=== PATIENT | female | born 1940 | race Caucasian/White ===

== ENCOUNTER 2016-10-12 10:21 | Outpatient (CLI) | payer MEDICARE, OTHER ==
[2016-10-12] MEDS ORDERED: Bupivacaine 0.25% 30 ML SDV ONE (11:50)
[2016-10-12] MEDS ORDERED: Lidocaine 1% 2 ML ONE (11:50)
[2016-10-12 12:31] VITALS: BP 162/87
--- NOTE | 2016-10-12 14:17 | PROC ---
This is an evaluation and procedure note. TITLE: Trigger point injection x5. SUBJECTIVE: This patient returns today. She had a left SI joint injection about a month ago. She stated that it did give her some relief, but she had been having a little bit more discomfort. She did not get quite relief this time as she did previously. She says that she is having a lot of discomfort in the upper buttock and more towards the left hip. She does say that it seems to be near the SI joint, however, when she points she is significantly lateral and somewhat inferior sometimes, somewhat superior to where the left SI joint is. She does not wake up with the pain in the morning. There is no real trouble down the leg, once in a while, she gets a little bit down the back of her calf when it gets particularly bad, however, it stops at the knee and it really is not very intense there. She says she denies anything going over onto the right side. She says once in a while it feels like she moves in a particular way and it feels like there is a stretching pain there. She said it is almost a cutting type pain, in other words, when you cut your finger that initial sensation, but it tends to be worse in the evening and does not really occur in the morning until she gets up and begins moving. She reports her pain today as being 2 to 3 out of 10, worst is about 6/10, and the best is about 2/10. It gets up to about 6/10 every single day. In certain position it will make it worse, however, she is not really sure which ones make it worse exactly, but doing certain bending maneuvers or so forth tend to make it more uncomfortable. It is worse with car rides. She says that it is better with heat as well as the medications. She also did say that she has gone to massage therapy and that seems to have helped in the past. She also said that using a back roll seems to help particularly if she places it near her hips. She does lean on the cart when she walks and that seems to take some of the pressure off those muscles as well. The patient denies any pain in the anterior aspect or into the groin. OBJECTIVE: This is a pleasant 76-year-old white female, who is alert and oriented x3. I did have her do gait testing, which she had normal heel-toe walk and upright posture with a cane. She was able to walk on her heels, toes, and with feet inverted and not experiencing any provocation. Axial bending, she does have a little bit more discomfort if she bends forward, it is a slight increase, extension is slight increase as well. Left lateral bending is slight increase. Right lateral bending and left and right lateral rotation were negative. Range of motion is unimpeded. Strength testing bilaterally, hip abduction, adduction, flexion 5/5 bilaterally. Her lower leg extension and flexion are 5/5 bilaterally. Dorsi and plantar flexion are 5/5 bilaterally. Clonus is negative. Pulses are 2+ bilaterally. Skin is pink with less than 3 seconds capillary refill. Patellar reflexes are +1 bilaterally. Achilles reflexes are +1 bilaterally. She does have some greater trochanter tenderness on the left hand side. Straight leg raise was negative both in the supine and sitting position. Mike's was negative. SI joint tenderness is slight and best on the left hand side and facetogenic tenderness is very positive bilaterally. She does have trigger points that I can feel particularly in the gluteus and there maybe a couple of others, which I was unable to palpate on a quick exam. ASSESSMENT: Myofascial pain, possible left sacroiliac joint pain, however, I believe that is unlikely, also possible spinal stenosis related pain. She does have some pain associated with the L5 dermatome, but it is not producible on provocation. Trigger points in the gluteus uzair, gluteus minimus, gluteus medius as well as the psoas muscle. Plan to do trigger points today. We will do trigger points into the above- stated muscles. Also, I did talk to her about medications. We discussed the possible use of a muscle relaxant. She does seem to have some myofascial pain, which may help reduce this. I did also talk about restarting her gabapentin. She does have that on her med list, however, she has stopped it due to somnolence. We talked about starting that up at 100 mg doing that for 4 to 7 days in the evening only before adding in the morning dose for another 4 to 7 days and finally the daytime dose for 4 to 7 days. I did tell her that if she is getting quite somnolent during the day, to double up on the evening dose as possible with dosing mechanism, but I did tell her to talk to Dr. Townsend about that. Also talk to her about the use of ibuprofen or Tylenol, which are on her med list and probably using them on a more frequent and regular basis will help with any discomfort that she has. She does do some physical therapy exercises. I did tell her that she should probably go to Physical therapy and get some isometric exercises specific for SI joint strengthening. We did discuss diet as well which seems to be okay and she denies any bowel or bladder problems or intent to harm due to the opioids. PROCEDURE NOTE: The patient was placed on the prone positioner. Knees and hips were flexed. Ankles were placed on a pillow. The abdomen was allowed to hang freely. Shoulders were well supported, less than 90 degrees. Head was in the head cradle with eyes and ears clear. I looked for trigger points and located them in the gluteus uzair, gluteus minimus, gluteus medius, and the psoas muscle. There were 2 in the gluteus uzair, 1 each in the others. I placed gary corresponding to that on the skin. Whole area was prepped with ChloraPrep. I then placed a 25-gauge x 3.5 inch needles into the trigger points, placing each needle in turn into the trigger point. I then went back to each needle, aspirated and injected approximately 1 mL of 0.25% Marcaine. At that point, I let the needles sit for a minute or so with the needle in the belly of the muscle in the trigger point. I then began needling each trigger point in the sequence. I needled the trigger points for approximately 30 seconds then I injected 0.5 mL into superior, inferior, medial, and lateral aspects of the trigger point and then continued needling for approximately 20 to 30 seconds after that in the fascia around. I did note quite a bit of tight fascia and so needling was performed in a wide area. That was done for all trigger points. When I finished, the patient returned to a standing position. She told me that she had about 1/10 pain, which was an improvement and she was able to move around with less discomfort. No untoward effects were noted. Vital signs were monitored. She was discharged stable. PLAN: Plan to have her give us a call and see how she is doing, if she should need to come back for any injections, we can schedule her at that time. Thank you very much for this consult. CK: 10/12/2016 12:40:38 MODL: 10/12/2016 14:08:32 /[id number]
== END 2016-10-12 12:34 | disposition home or self-care (01) ==
LOC: VM.PAIN 10:21
PROVIDERS: ATTEND Nurse Anesthetist, Certified Registered
DX: M79.609 Pain in unspecified limb (principal)
CPT/HCPCS: 20553

== ENCOUNTER 2017-06-21 06:54 | Day surgery (SDC) | payer MEDICARE, OTHER ==
[~2017-06-21 06:54] MED LIST: Lactated Ringers 1,000 ML IV SCH
[2017-06-21] MEDS ORDERED: Propofol 200 MG/20 ML SDV ONE (07:48)
[2017-06-21 09:20] VITALS: BP 127/70
--- NOTE | 2017-06-27 10:04 | LETTER ---
06/27/2017 Gabbie Villarreal RE: GABBIE VILLARREAL : 1940 Dear Gabbie: The biopsies taken from your stomach revealed some mild gastritis and there was no evidence of H. pylori which is the bacteria that can cause gastritis. If you have any further questions, feel free to call or consult with your family physician. Respectfully,
--- NOTE | 2017-06-27 14:00 | OR ---
PREOPERATIVE DIAGNOSIS: Dyspepsia, epigastric pain. POSTOPERATIVE DIAGNOSIS: Large hiatal hernia and gastritis. PROCEDURE PROPOSED: Upper gastrointestinal panendoscopy with antral biopsies. PROCEDURE DONE: Upper gastrointestinal panendoscopy with antral biopsies. INDICATION: This is a 76-year-old female bothered with some epigastric bloating and discomfort despite being on antacid medication. It is felt that she should be gastroscoped to rule out significant pathology. TECHNIQUE: The patient was brought to the endoscopy suite, placed in left lateral decubitus position. She was sedated with propofol per IRONWORKER FOREMAN. The flexible video gastroscope was then passed transorally and under visualization advanced well into the duodenum. The duodenum and duodenal bulb were unremarkable. The antrum revealed very mild gastritis. The proximal portion of the stomach revealed a moderate-sized hiatal hernia with approximately 25-30% of her stomach above the diaphragms with the herniated portion measuring about 6 cm. The GE junction itself did not show any active GERD. There were no signs of any Schatzki's ring or stenosis and the remainder of esophagus was normal. As the scope was then withdrawn, she tolerated the procedure well. FINAL IMPRESSION: 1. Moderate size hiatal hernia, probably symptomatic. 2. Minimal gastritis, on treatment. PLAN: I feel that she should continue taking her anti-acid medication. She could be a candidate for lap Joshua if she continues to be severely symptomatic but based on her age, there would be some risk in doing the procedure. She should follow up with her family physician for any further questions. SCM: 06/27/2017 09:45:32 MODL: 06/27/2017 13:05:16 /[id number]
== END 2017-06-21 09:55 | disposition home or self-care (01) ==
LOC: VM.SDS 06:54
PROVIDERS: ATTEND Surgery
DX: K31.9 Disease of stomach and duodenum, unspecified (principal); K44.9 Diaphragmatic hernia without obstruction or gangrene; K21.9 Gastro-esophageal reflux disease without esophagitis; G89.29 Other chronic pain; M54.42 Lumbago with sciatica, left side; I10 Essential (primary) hypertension; E66.9 Obesity, unspecified; E78.5 Hyperlipidemia, unspecified; D50.9 Iron deficiency anemia, unspecified; F32.9 Major depressive disorder, single episode, unspecified; E11.40 Type 2 diabetes mellitus with diabetic neuropathy, unspecified; E11.319 Type 2 diabetes mellitus with unspecified diabetic retinopathy without macular edema; Z79.4 Long term (current) use of insulin; Z79.82 Long term (current) use of aspirin; Z79.891 Long term (current) use of opiate analgesic; Z79.899 Other long term (current) drug therapy; Z88.8 Allergy status to other drugs, medicaments and biological substances; Z90.710 Acquired absence of both cervix and uterus; Z68.33 Body mass index [BMI] 33.0-33.9, adult; Z98.890 Other specified postprocedural states
CPT/HCPCS: 00740; 43239; 82962; 88305; J2704; J7120

== ENCOUNTER 2017-09-27 07:00 | Day surgery (SDC) | payer MEDICARE, OTHER ==
[2017-09-27] MEDS ORDERED: fentaNYL 100 MCG/2 ML SDV ONE (08:17)
[2017-09-27] MEDS ORDERED: Propofol 200 MG/20 ML SDV ONE ×2 (08:17→08:45)
[2017-09-27 09:56] VITALS: BP 146/59
--- NOTE | 2017-09-27 16:33 | OR ---
PREOPERATIVE DIAGNOSIS: Anemia. POSTOPERATIVE DIAGNOSES: 1. Hepatic flexure colon carcinoma. 2. Multiple colonic polyps-5 removed. PROCEDURE PROPOSED: Total flexible colonoscopy. PROCEDURE DONE: Total flexible colonoscopy with polypectomy x5 and biopsies of colon mass. INDICATION: This is a 77-year-old female with significant anemia of 8.7 with iron deficiency. She had an EGD recently and was found to have some gastritis and was now referred for colonoscopy. It is uncertain when she had her last one, but the patient states it was in 2012 and records will be reviewed. TECHNIQUE: The patient was brought to the endoscopy suite and placed in left lateral decubitus position. She was sedated per AUTOMOBILE ASSEMBLY SUPERVISOR with propofol. The flexible video colonoscope was then passed transanally and under visualization advanced to the cecum. She had a couple of polyps in the ascending colon, but after finding a large carcinomatous mass at the hepatic flexure, I did not attempt to remove the polyps in the ascending colon. The ascending colon mass was biopsied multiple times. I then brought the scope back into the transverse colon and at 75 cm, 2 polyps were found, both were removed with cold biopsy forceps and submitted for pathologic examination. I then brought the scope back through the splenic flexure and into the descending colon, all of which were unremarkable. In the sigmoid colon, I found 2 more polyps at about 15 cm, large enough that I had to use the hot snare technique and retrieved them with suction. Another polyp had been found at [address] and that one had been removed with the cold biopsy forceps. The rectum was normal. The scope was then withdrawn. The patient tolerated the procedure well. FINAL IMPRESSION: 1. Hepatic flexure colon carcinoma. 2. Multiple colonic polyps x5, removed. PLAN: I have recommended a CAT scan of the abdomen to rule out metastatic disease. We will also obtain a CEA and chemistry panel preoperatively. She will need General Surgery referral either to [facility] or [place] depending on the patient's wishes. SCM: 09/27/2017 09:16:28 MODL: 09/27/2017 13:51:17 /[id number]
== END 2017-09-27 10:30 | disposition home or self-care (01) ==
LOC: VM.SDS 07:00
PROVIDERS: ATTEND Surgery
DX: D12.6 Benign neoplasm of colon, unspecified (principal); K63.5 Polyp of colon; E11.22 Type 2 diabetes mellitus with diabetic chronic kidney disease; I12.9 Hypertensive chronic kidney disease with stage 1 through stage 4 chronic kidney disease, or unspecified chronic kidney disease; D63.1 Anemia in chronic kidney disease; N18.2 Chronic kidney disease, stage 2 (mild); D50.0 Iron deficiency anemia secondary to blood loss (chronic); K21.9 Gastro-esophageal reflux disease without esophagitis; E11.40 Type 2 diabetes mellitus with diabetic neuropathy, unspecified; E11.319 Type 2 diabetes mellitus with unspecified diabetic retinopathy without macular edema; E78.5 Hyperlipidemia, unspecified; F33.40 Major depressive disorder, recurrent, in remission, unspecified; E66.9 Obesity, unspecified; Z88.8 Allergy status to other drugs, medicaments and biological substances; Z79.84 Long term (current) use of oral hypoglycemic drugs; Z79.82 Long term (current) use of aspirin; Z68.32 Body mass index [BMI] 32.0-32.9, adult; K63.9 Disease of intestine, unspecified; K44.9 Diaphragmatic hernia without obstruction or gangrene; R91.8 Other nonspecific abnormal finding of lung field
CPT/HCPCS: 00810; 45380; 45385; 82962; 88305; J2704; J3010; J7120; 74177; Q9967

== ENCOUNTER 2019-02-05 06:32 | Day surgery (SDC) | payer MEDICARE, OTHER ==
[~2019-02-05 06:32] MED LIST changes: +Sodium Chloride 0.9% 10 ML Syringe FLUSH PRN
[2019-02-05] MEDS ORDERED: fentaNYL 100 MCG/2 ML SDV ONE (07:47)
[2019-02-05] MEDS ORDERED: Propofol 200 MG/20 ML SDV ONE (07:47)
[2019-02-05] MEDS ORDERED: Simethicone Drops 40 MG/0.6 ML 30 ML Bottle ONE (08:17)
[2019-02-05 09:08] VITALS: BP 119/62
--- NOTE | 2019-02-05 11:41 | OR ---
PREOPERATIVE DIAGNOSES: 1. History of colon cancer, previous right hemicolectomy. 2. History of cancerous polypectomy 7 months ago. PROCEDURE PROPOSED: Total flexible colonoscopy. PROCEDURE DONE: Total flexible colonoscopy. POSTOPERATIVE DIAGNOSIS: Normal colonoscopic exam. Previous right hemicolectomy. 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 She was found on a followup exam 7 months ago to have a polyp near the anastomosis that was removed and revealed a small focus of adenocarcinoma. She now comes in for a 7 month followup from that polypectomy. TECHNIQUE: The patient brought to the endoscopy suite, placed in left lateral decubitus position. She was sedated per PORTFOLIO ARCHITECT with propofol. The flexible video colonoscope was then passed transanally, and under visualization, advanced to the transverse colon and ileal anastomosis which was widely patent. There were no signs of any abnormalities in the vicinity. No signs of any recurrent polyp. No signs of any other polyps throughout the transverse, descending, sigmoid, and rectal colon. There were no signs of any diverticulosis or other abnormalities and the scope was then withdrawn. The patient tolerated the procedure well. FINAL IMPRESSION: 1. Normal colonoscopic exam, status post right hemicolectomy. 2. History of previous colon cancer and cancerous polyp. PLAN: The patient should consider another followup exam in the next 6 to 12 months to keep a close eye in this area. SCM: 02/05/2019 08:23:47 MODL: 02/05/2019 11:36:50 /[id number]
== END 2019-02-05 09:35 | disposition home or self-care (01) ==
LOC: VM.SDS 06:32
PROVIDERS: ATTEND Surgery
DX: Z12.11 Encounter for screening for malignant neoplasm of colon (principal); Z85.038 Personal history of other malignant neoplasm of large intestine; K29.50 Unspecified chronic gastritis without bleeding; I13.10 Hypertensive heart and chronic kidney disease without heart failure, with stage 1 through stage 4 chronic kidney disease, or unspecified chronic kidney disease; E11.22 Type 2 diabetes mellitus with diabetic chronic kidney disease; N18.3 Chronic kidney disease, stage 3 (moderate); E66.9 Obesity, unspecified; Z68.31 Body mass index [BMI] 31.0-31.9, adult; Z79.4 Long term (current) use of insulin; F32.9 Major depressive disorder, single episode, unspecified; F41.9 Anxiety disorder, unspecified; Z79.891 Long term (current) use of opiate analgesic; Z79.82 Long term (current) use of aspirin; Z79.899 Other long term (current) drug therapy; Z88.8 Allergy status to other drugs, medicaments and biological substances
CPT/HCPCS: 00811; 82962; G0121; J2704; J3010; J7120

== ENCOUNTER 2020-03-12 06:57 | Day surgery (SDC) | payer MEDICARE, OTHER ==
[~2020-03-12 06:57] MED LIST changes: -Lactated Ringers 1,000 ML IV SCH
[2020-03-12] MEDS ORDERED: Lactated Ringers 1,000 ML IV SCH (07:00)
[2020-03-12] MEDS ORDERED: fentaNYL 100 MCG/2 ML SDV ONE (07:52)
[2020-03-12] MEDS ORDERED: Propofol 200 MG/20 ML SDV ONE ×2 (07:53→08:33)
[2020-03-12 09:12] VITALS: BP 96/63; PULSE 76
--- NOTE | 2020-03-13 11:44 | OR ---
DATE OF SURGERY: 03/12/2020. REFERRING PROVIDER: 1. Cary Tee DO. 2. Dr. Panchal, oncologist in [place]. PRE-OPERATIVE DIAGNOSES: History of colon cancer with right hemicolectomy in 10/2017. Last colonoscopy in 01/2019 was normal. POST-OPERATIVE DIAGNOSES: 1. 3 polyps removed. a. 6 mm polyp at 100 cm, removed with hot snare. b. 10 mm polyp at 80 cm, removed with hot snare. c. 3 mm rectal polyp, removed with cold forceps. 2. Tortuous colon. 3. At the right anastomosis site, there was noted to be two 4 mm fecal concretions, which I suspect to have formed non-partially exposed sutures. These are firm and immobile and dark black in color. I do not see any worrisome tissue around the areas. PROCEDURE: Colonoscopy with polypectomy x3 (2 hot snares and 1 cold forceps). SURGEON: John Stevenson M.D. ANESTHESIA: Monitored anesthesia care. BOWEL PREP: Good. Gabbie is a 79-year-old female who was brought to the endoscopy suite after discussing risks and benefits of the procedure. Informed consent was obtained for conscious sedation and colonoscopy with or without biopsy and/or polypectomy. We also discussed possibility of missed lesions. Pre-procedure exam was unremarkable. IV, oxygen, and monitors were placed. The patient was placed in the left lateral decubitus position. Sedation was administered and a digital rectal exam was performed which was unremarkable. Colonoscope was passed into the rectum and slowly advanced all the way to the right-sided anastomosis site. The patient did have rather tortuous colon. The right anastomosis site was viewed. There was noted to be two 4 mm rounded dark firm and immobile fecal concretions. I suspect these are located on 2 partially exposed sutures on previous right hemicolectomy. There was no worrisome looking tissue around the area or nearby the anastomosis site. The colonoscope was slowly withdrawn and the mucosa was closely observed in a direct circumferential manner. The ascending colon revealed 6 mm polyp at 100 cm, removed with hot snare. The transverse colon revealed 10 mm polyp at 80 cm, removed with hot snare. The descending colon was unremarkable. The sigmoid colon was unremarkable. Rectal mucosa revealed 3 mm polyp, removed with cold forceps. Retroflexion was performed and rectal mucosa was otherwise unremarkable. Scope was removed. The patient tolerated the procedure well. The patient was monitored until that baseline status. Discharge instructions were reviewed and the patient was discharged in good condition. COMPLICATIONS: None. TOTAL TIME: 44 minutes ESTIMATED BLOOD LOSS: Less than 1 mL. RECOMMENDATIONS/FOLLOW-UP: We will await results of path report to determine ideal followup interval. I will have the patient hold her aspirin for about 5 days to limit any chance of bleeding from the polypectomy sites. I would like to kindly thank Cary Tee and Dr. Panchal for this referral. DMB: 03/12/2020 13:02:16 MODL: 03/12/2020 15:56:32 /[id number]
== END 2020-03-12 10:15 | disposition home or self-care (01) ==
LOC: VM.SDS 06:57
PROVIDERS: ATTEND Family Medicine
DX: Z12.11 Encounter for screening for malignant neoplasm of colon (principal); D12.2 Benign neoplasm of ascending colon; D12.3 Benign neoplasm of transverse colon; K62.1 Rectal polyp; Q43.8 Other specified congenital malformations of intestine; I10 Essential (primary) hypertension; E66.9 Obesity, unspecified; F32.9 Major depressive disorder, single episode, unspecified; E11.319 Type 2 diabetes mellitus with unspecified diabetic retinopathy without macular edema; E78.5 Hyperlipidemia, unspecified; K21.9 Gastro-esophageal reflux disease without esophagitis; R91.8 Other nonspecific abnormal finding of lung field; E11.40 Type 2 diabetes mellitus with diabetic neuropathy, unspecified; E78.00 Pure hypercholesterolemia, unspecified; Z11.59 Encounter for screening for other viral diseases; Z87.891 Personal history of nicotine dependence; Z79.899 Other long term (current) drug therapy; Z79.4 Long term (current) use of insulin; Z68.29 Body mass index [BMI] 29.0-29.9, adult; Z85.038 Personal history of other malignant neoplasm of large intestine; Z90.49 Acquired absence of other specified parts of digestive tract; Z98.890 Other specified postprocedural states
CPT/HCPCS: 00811; 45380; 45385; 82962; 88305; J2704; J3010; J7120; U0002; 45384

== ENCOUNTER 2022-05-20 06:44 | Day surgery (SDC) | payer MEDICARE, OTHER ==
[2022-05-20] MEDS ORDERED: Sodium Chloride 0.9% 10 ML Syringe FLUSH PRN (07:00)
[2022-05-20] MEDS: Lactated Ringers 1,000 ML IV SCH (07:02)
[2022-05-20] MEDS ORDERED: fentaNYL 100 MCG/2 ML SDV ONE (07:47)
[2022-05-20] MEDS ORDERED: Propofol 200 MG/20 ML SDV ONE ×2 (07:47→08:12)
[2022-05-20 09:20] VITALS: BP 138/57; PULSE 72
== END 2022-05-20 09:54 | disposition home or self-care (01) ==
LOC: VM.SDS 06:44
PROVIDERS: ATTEND Student in an Organized Health Care Education/Training Program
DX: Z12.11 Encounter for screening for malignant neoplasm of colon (principal); D12.3 Benign neoplasm of transverse colon; I10 Essential (primary) hypertension; E66.9 Obesity, unspecified; E11.40 Type 2 diabetes mellitus with diabetic neuropathy, unspecified; F32.A Depression, unspecified; K21.9 Gastro-esophageal reflux disease without esophagitis; M85.80 Other specified disorders of bone density and structure, unspecified site; E78.5 Hyperlipidemia, unspecified; D64.9 Anemia, unspecified; Z87.891 Personal history of nicotine dependence; Z85.038 Personal history of other malignant neoplasm of large intestine; Z90.49 Acquired absence of other specified parts of digestive tract; Z98.890 Other specified postprocedural states; Z79.4 Long term (current) use of insulin; Z68.30 Body mass index [BMI] 30.0-30.9, adult
CPT/HCPCS: 00811; 82947; J2704; J3010; J7120

== ENCOUNTER 2025-03-06 10:35 | Inpatient (IN) | payer SELFPAY ==
[2025-03-06] MEDS: [UNRECOGNIZED DRUG - OTHER] PO ONE (15:50)
[2025-03-06] MEDS ORDERED: Sodium Chloride 0.9% 10 ML Syringe FLUSH PRN (15:56)
[2025-03-06] MEDS: Bisacodyl 5 MG Tab PO ONE (18:48)
[2025-03-06] MEDS: LORazepam 0.5 MG Tab PO SCH (20:09)
[2025-03-06] MEDS: Acetaminophen/HYDROcodone 325-5 MG Tab PO SCH (20:10)
[2025-03-07] MEDS: Acetaminophen/HYDROcodone 325-5 MG Tab PO SCH (05:12)
[2025-03-07] MEDS: LORazepam 0.5 MG Tab PO SCH (05:12)
[2025-03-07 05:19] VITALS: BP 123/58; PULSE 79
== END 2025-03-07 06:30 | disposition still patient (30) | DRG 951 ==
LOC: VM.MS 14:05
PROVIDERS: ADMIT Internal Medicine; ATTEND Internal Medicine
DX: Z12.11 Encounter for screening for malignant neoplasm of colon (principal); Z66 Do not resuscitate; E11.319 Type 2 diabetes mellitus with unspecified diabetic retinopathy without macular edema; F41.9 Anxiety disorder, unspecified; H54.8 Legal blindness, as defined in USA; G89.29 Other chronic pain; F32.A Depression, unspecified; E11.40 Type 2 diabetes mellitus with diabetic neuropathy, unspecified; K21.9 Gastro-esophageal reflux disease without esophagitis; E78.5 Hyperlipidemia, unspecified; I10 Essential (primary) hypertension; K59.03 Drug induced constipation; T40.2X5A Adverse effect of other opioids, initial encounter; K29.50 Unspecified chronic gastritis without bleeding; E11.65 Type 2 diabetes mellitus with hyperglycemia; M54.32 Sciatica, left side; Z79.4 Long term (current) use of insulin; Z79.899 Other long term (current) drug therapy; Z90.710 Acquired absence of both cervix and uterus; Z98.890 Other specified postprocedural states; Z79.82 Long term (current) use of aspirin; Z79.84 Long term (current) use of oral hypoglycemic drugs
CPT/HCPCS: A9270-GY

== ENCOUNTER 2025-03-07 06:31 | Day surgery (SDC) | payer MEDICARE, OTHER ==
[2025-03-07] MEDS: Lactated Ringers 1,000 ML IV SCH (06:41)
[2025-03-07] MEDS ORDERED: Propofol 200 MG/20 ML SDV ONE (07:12)
[2025-03-07] MEDS ORDERED: fentaNYL 100 MCG/2 ML SDV ONE (07:12)
[2025-03-07] MEDS ORDERED: ePHEDrine 50 MG/ML SDV ONE (08:10)
[2025-03-07 09:16] VITALS: BP 137/68; PULSE 79
== END 2025-03-07 13:04 | disposition home or self-care (01) ==
LOC: VM.SDS 06:31
PROVIDERS: ATTEND Student in an Organized Health Care Education/Training Program
DX: Z12.11 Encounter for screening for malignant neoplasm of colon (principal); K62.1 Rectal polyp; Z86.0100 Personal history of colon polyps, unspecified; K21.9 Gastro-esophageal reflux disease without esophagitis; I10 Essential (primary) hypertension; E11.40 Type 2 diabetes mellitus with diabetic neuropathy, unspecified; Z79.899 Other long term (current) drug therapy
CPT/HCPCS: 00811; 88305; 99100; J2704; J3010; J3490; J7120